=== PATIENT | female | born 1970 | race Caucasian/White ===

== ENCOUNTER 2017-04-16 07:23 | Emergency (ER) | payer MEDICAID, OTHER ==
[~2017-04-16] VITALS: Ht 162.6 cm; Wt 90.9 kg
[2017-04-16 08:45] VITALS: BP 136/77
== END 2017-04-16 09:00 | disposition home or self-care (01) ==
LOC: EDUNIT# 07:23 → EMS 07:24
DX: J40 Bronchitis, not specified as acute or chronic (principal); F41.9 Anxiety disorder, unspecified
CPT/HCPCS: 93005; 99284

== ENCOUNTER 2017-09-06 18:58 | Emergency (ER) | payer OTHER ==
[~2017-09-06] VITALS: Ht 162.6 cm; Wt 72.7 kg
[2017-09-06] MEDS ORDERED: PERTUSS(ACELL),DIPH,TET VAC/PF 0.5 ML VIAL IM ONE (19:45)
[2017-09-06] MEDS ORDERED: HYDROCODONE/ACETAMINOPHEN 5-325 MG TABLET PO ONE (19:45)
[2017-09-06 20:14] VITALS: BP 117/67
== END 2017-09-06 20:05 | disposition home or self-care (01) ==
LOC: EMS 18:59
DX: S81.011A Laceration without foreign body, right knee, initial encounter (principal); W20.8XXA Other cause of strike by thrown, projected or falling object, initial encounter; Y93.89 Activity, other specified; Y92.89 Other specified places as the place of occurrence of the external cause; Y99.8 Other external cause status
CPT/HCPCS: 12002; 90471; 90715; 99283

== ENCOUNTER 2017-09-21 19:58 | Emergency (ER) | payer OTHER ==
[~2017-09-21] VITALS: Ht 162.6 cm; Wt 90.9 kg
[2017-09-21 21:48] VITALS: BP 132/67
== END 2017-09-21 22:09 | disposition home or self-care (01) ==
LOC: EMS 19:58
DX: S81.011D Laceration without foreign body, right knee, subsequent encounter (principal); X58.XXXD Exposure to other specified factors, subsequent encounter
CPT/HCPCS: 99281